=== PATIENT | female | born 1935 | race Caucasian/White ===

== ENCOUNTER → 2017-02-21 | Outpatient (CLI) | payer OTHER ==
[~2017-02-21] MED LIST: IOPAMIDOL (ISOVUE-300) 100 ML BTL ONE
== END ==
LOC: CIMAGING 09:52
DX: C78.6 Secondary malignant neoplasm of retroperitoneum and peritoneum (principal); C78.00 Secondary malignant neoplasm of unspecified lung; C77.2 Secondary and unspecified malignant neoplasm of intra-abdominal lymph nodes; C79.89 Secondary malignant neoplasm of other specified sites; C54.1 Malignant neoplasm of endometrium; I51.7 Cardiomegaly; K74.60 Unspecified cirrhosis of liver; R18.8 Other ascites; N13.30 Unspecified hydronephrosis
CPT/HCPCS: 71260-PO; 74177-PO; Q9967

== ENCOUNTER → 2017-03-07 | Outpatient (CLI) | payer OTHER ==
[~2017-03-07] MED LIST changes: +ALBUMIN 25% 100 ML SOLN IV ONE; -IOPAMIDOL (ISOVUE-300) 100 ML BTL ONE
== END ==
LOC: FIMAGING 13:42
PROC: 0W9G3ZZ Drainage of Peritoneal Cavity, Percutaneous Approach (ICD-10-PCS; principal; 2017-03-07)
DX: R18.8 Other ascites (principal)
CPT/HCPCS: P9047

== ENCOUNTER 2017-03-21 09:29 | Day surgery (SDC) | payer OTHER, BC ==
[~2017-03-21 09:29] MED LIST changes: -ALBUMIN 25% 100 ML SOLN IV ONE; +NS 1,000 ML IV SCH
[2017-03-21 10:12] LABS: HEMATOCRIT 37.2 % (38.0-47.0)
[2017-03-21] MEDS ORDERED: FLUMAZENIL 0.5 MG/5 ML MDV IVP ONE (10:12)
[2017-03-21] MEDS ORDERED: NALOXONE HCL 0.4 MG/ML INJ ONE (10:12)
[2017-03-21] MEDS ORDERED: MIDAZOLAM 2 MG/2 ML VIAL ONE (10:13)
[2017-03-21] MEDS ORDERED: fentaNYL 100 MCG/2 ML INJ ONE (10:13)
[2017-03-21 10:21] LABS: INR 0.94 (0.83-1.16); PROTIME(PATIENT) 12.5 SEC (12.0-15.0)
[2017-03-21 12:15] VITALS: PULSE 66; RESP 16; O2SAT 100
[2017-03-21] MEDS ORDERED: LIDOCAINE 1% 300 MG/30 ML SDV ONE (13:03)
[2017-03-21 13:51] VITALS: TEMP 97.7
[2017-03-21 13:52] VITALS: BP 127/75
== END 2017-03-21 13:36 | disposition home or self-care (01) ==
LOC: FIMAGING 09:29
PROVIDERS: ATTEND Internal Medicine Hospice and Palliative Medicine
PROC: 0W9G30Z Drainage of Peritoneal Cavity with Drainage Device, Percutaneous Approach (ICD-10-PCS; principal; 2017-03-21 11:56)
DX: R18.8 Other ascites (principal); C54.1 Malignant neoplasm of endometrium; I50.9 Heart failure, unspecified; Z95.0 Presence of cardiac pacemaker
CPT/HCPCS: C2617; J2250; J2310; J3010